=== PATIENT | male | born 1960 | race Caucasian/White ===

== ENCOUNTER → 2017-01-27 | Outpatient (CLI) | payer MEDICAID ==
[2017-01-27 09:04] LABS: HEMOGLOBIN 15.5 g/dL (14.1-18.0); LYMPH # 1.5 K/mm3 (0.7-4.5); LYMPH % 28.8 % (10-50)
[2017-01-27 09:11] LABS: BUN 14 mg/dL (7-18)
[2017-01-27 09:14] LABS: GFR (ESTIMATED) 99 ML/MIN (>60)
== END ==
LOC: LAB 07:57
PROVIDERS: Internal Medicine Adolescent Medicine
DX: R39.89 Other symptoms and signs involving the genitourinary system (principal); N41.0 Acute prostatitis; E78.5 Hyperlipidemia, unspecified